=== PATIENT | male | born 1960 | race Caucasian/White ===

== ENCOUNTER 2020-11-11 14:13 | Emergency (ER) | payer OTHER ==
[~2020-11-11] VITALS: Ht 177.8 cm; Wt 83.1 kg
[2020-11-11] MEDS ORDERED: DEXAMETHASONE 4 MG TABLET PO ONE (14:30)
[2020-11-11] MEDS ORDERED: DEXAMETHASONE 4 MG TABLET ONE (18:35)
--- NOTE | 2020-11-11 18:38 | NUR ---
PT CALLED BACK FOR RECHECK, PT STATING SOB, DIFFICULTY BREATHING. DANAY MANN SAW PT, VSS/UPDATED. DECADRON GIVEN PER ERP ORDER.
--- NOTE | 2020-11-11 18:50 | NUR ---
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
--- NOTE | 2020-11-11 19:01 | NUR ---
PT PRESENTS TO THE ER FOR A COUGH AND SOB, PT STATES THIS HAS BEEN GOING ON FOR A WEEK, PT STATES THAT HE HAS A NON PRODUCTIVE COUGH, PT STATES HE HAS LOSS OF TASTE AND SMELL, CONGESTION, AND EXTREMELY FATIGUED, PT DID NOT RECIEVE THE COVID VACCINE
[2020-11-11] MEDS ORDERED: APIXABAN 5 MG TABLET PO ONE (19:35)
[2020-11-11] MEDS ORDERED: APIXABAN 5 MG TABLET ONE (19:37)
[2020-11-11] MEDS ORDERED: METOPROLOL TARTRATE 25 MG TAB ONE (19:37)
[2020-11-11] MEDS ORDERED: ASPIRIN 81 MG TABLET CHEW ONE (19:38)
--- NOTE | 2020-11-11 19:57 | NUR ---
PT HAD A HIGH HEART RATE OF 170 WHEN AMBULATING BACK FROM BATHROOM, ER MD ORDERED PO MEDICATIONS THAT WERE ADMINISTERED BY THIS RN AND THIS RN STARTED AN IV IN PTS LEFT AC
[2020-11-11] MEDS ORDERED: SODIUM CHLORIDE FLUSH 10ML SYR IVF ONE (20:00)
[2020-11-11] MEDS ORDERED: METOPROLOL TARTRATE 25 MG TAB PO ONE (20:00)
[2020-11-11] MEDS ORDERED: ASPIRIN 81 MG TABLET CHEW PO ONE (20:00)
[2020-11-11 20:16] LABS: BASOPHILS % (AUTO) 0 % (0-1); EOSINOPHILS % (AUTO) 0 % (1-7); LYMPHOCYTES % (AUTO) 11 % (22-44); MEAN CORPUSCULAR HEMOGLOBIN 31.1 pg (27.5-34.5); MEAN CORPUSCULAR HGB CONC 35.4 g/dL (33.2-36.2); MEAN PLATELET VOLUME 8.3 fL (7.4-10.4); MONOCYTES % (AUTO) 8 % (2-9); NEUTROPHILS % (AUTO) 81 % (42-75); PLATELET COUNT 208 x10^3/uL (130-400); RED CELL DISTRIBUTION WIDTH 12.7 % (9.4-14.8)
[2020-11-11 20:22] LABS: ALBUMIN 2.9 g/dL (3.4-5.0); ANION GAP 8 mmol/L (5-15); CALCIUM 8.3 mg/dL (8.5-10.1); CHLORIDE 106 mmol/L (98-107); CREATININE 0.88 mg/dL (0.7-1.3)
[2020-11-11 20:26] LABS: TROPONIN I < 0.015 ng/mL (0.000-0.045)
[2020-11-11 21:26] VITALS: BP 102/57
== END 2020-11-11 21:34 | disposition home or self-care (01) ==
LOC: ED 15:06
DX: J12.9 Viral pneumonia, unspecified (principal); I48.0 Paroxysmal atrial fibrillation; Z20.822 Contact with and (suspected) exposure to COVID-19
CPT/HCPCS: 36415; 71045; 80048; 82040; 83880; 84484; 85025; 93005; 99285; U0003; U0005